=== PATIENT | female | born 1965 | race Caucasian/White ===

== ENCOUNTER 2024-04-01 10:07 | Outpatient (CLI) | payer OTHER, SELFPAY ==
--- NOTE | 2024-04-01 10:14 | USCV_ITS ---
Mayra Herron Age: 59 Gender: F : 1965 Exam Date: 04/01/2024 11:08 Ordering Phys: Victorino Lynn XX Technologist: CT Exam Location: [facility] – [place]_ Indication: BP: 130 / 80 HR: 65 Rhythm: Sinus Technical Quality: Adequate MEASUREMENTS (Male / Female) Normal Values 2D ECHO LVOT Diameter 2.0 cm LV Ejection Fraction MOD 4C 68.6 % LV Ejection Fraction MOD 2C 33.2 % LV Ejection Fraction 2C AL 37.5 % LA Diameter 4.1 cm RA Systolic Volume 4C AL 28.5 ml RA Systolic Volume 4C MOD 27.9 ml LA Sys Volume AL 43.6 cm cubed LA Sys Volume Index AL 21.4 cm cubed/m squared Aorta at Sinotubular Diameter 2.3 cm M-MODE LA Ao Ratio MM 1.4 AV Cusp Separation MM 1.6 cm DOPPLER AV Peak Velocity 157.0 cm/s LVOT Peak Velocity 88.0 cm/s AV Area Cont Eq vti 1.8 cm squared AV Area Cont Eq pk 1.8 cm squared MV Peak Velocity 81.0 cm/s MV Area PHT 2.6 cm squared Mitral E to A Ratio 0.9 TR Peak Velocity 167.0 cm/s TR Peak Gradient 11.2 mmHg TR Mean Velocity 118.0 cm/s TR Mean Gradient 6.6 mmHg TR Velocity Time Integral 34.7 cm TV Peak E Velocity 75.0 cm/s PV Peak Velocity 102.5 cm/s FINDINGS Left Ventricle Normal left ventricular size and systolic function, EF 68%. Moderate concentric left-ventricular hypertrophy.no regional wall motion abnormalities. Grade I/IV diastolic dysfunction (abnormal relaxation filling pattern), normal to mildly elevated filling pressures. Right Ventricle The right ventricle is normal in size and function. Right Atrium The right atrium is normal in size. Left Atrium The left atrium is normal in size. Mitral Valve Mild mitral annular calcification. Aortic Valve Thickened aortic valve. Features of aortic valve sclerosis Tricuspid Valve Trace tricuspid valve regurgitation. Estimated pulmonary artery peak systolic pressure within normal limits Pulmonic Valve No gross abnormalities noted Pericardium Normal pericardium without effusion. Aorta Normal ascending aorta dimension. IVC The inferior vena cava appears normal. CONCLUSIONS Normal left ventricular size and systolic function, EF 68%. Moderate concentric left-ventricular hypertrophy.no regional wall motion abnormalities. Grade I/IV diastolic dysfunction (abnormal relaxation filling pattern), normal to mildly elevated filling pressures. Thickened aortic valve. Features of aortic valve sclerosis. Mild mitral annular calcification. Trace tricuspid valve regurgitation. Estimated pulmonary artery peak systolic pressure within normal limits. There is no pericardial effusion. No similar previous studies are available for comparison Dr Sarina Stone MD FAC (Electronically Signed) Final Date: 01 April 2024 20:01 S
== END 2024-04-01 10:08 | disposition home or self-care (01) ==
LOC: RAD 10:11
PROVIDERS: PCP Family Medicine; Visit Provider Chiropractor
DX: I50.30 Unspecified diastolic (congestive) heart failure (principal); I25.10 Atherosclerotic heart disease of native coronary artery without angina pectoris; I35.0 Nonrheumatic aortic (valve) stenosis
CPT/HCPCS: 93306